=== PATIENT | male | born 1955 | race Caucasian/White ===

== ENCOUNTER 2021-07-15 21:18 | Observation (INO) | payer MEDICARE ==
[~2021-07-15] VITALS: Ht 182.9 cm; Wt 110.7 kg
[~2021-07-15 21:18] MED LIST: ALBU2.5V12 NEB; AZIT250T PO; BUDE1AMP2 IH; DOXY100C5 PO; IPRA3AMP25 IH; LEVO150T6 PO; PRED20TA PO
[2021-07-15 21:20] VITALS: BP 124/75
--- NOTE | 2021-07-15 21:20 | NUR ---
ARRIVAL ARRIVED VIA EMS. ALERT AND ORIENTED X3. C/O PAIN 4/10 ON NUMERICAL SCALE TO LEFT HIP. THURSDAY EVENING TRIPPED AND FELL INJURED LEFT HIP. THIS AFTERNOON WALKED TO TRUCK TO GET PHONE AND WAS FOUND IN THE DOORWAY BY EMS AFTER 5-6 HRS OF LYING THERE. HAD 10MG MORPHINE IV AND 4MG ZOFRAN IV IN ROUTE BY EMS. ON 2L O2 VIA NC O2 SAT @ 92%.
[2021-07-15] MEDS ORDERED: PROTONIX PO STA (21:31)
[2021-07-15] MEDS ORDERED: ZOFRAN IV STA (21:31)
[2021-07-15] MEDS ORDERED: ZOFRAN ONE (21:37)
[2021-07-15] MEDS ORDERED: PROTONIX PO ONE (21:37)
--- NOTE | 2021-07-15 21:51 | ER.PDOC ---
General Chief Complaint: Extremities Stated Complaint: L HIP DEFORMITY Time seen by MD: 21:46 Source: patient Exam Limitations: no limitations History of Present Illness Initial Comments Left hip pain status post fall. Patient tripped and fell, could not get up and laid on the floor for about 6 hours. He denies chest pain or shortness of breath. He denies hitting his head and no loss of consciousness. No headache or neck pain. Occurred: this afternoon Where: home Severity: severe Injuries/Pain Location: lower extremity Context: Tripped Loss of Consciousness: No Loss of Consciousness Associated Symptoms: denies symptoms Allergies: Coded Allergies: No Known Allergies (Unverified , 05/11/17) MEDS Active Scripts Doxycycline Hyclate (DOXYCYCLINE HYCLATE) 100 Mg Capsule, 100 MG PO BID for 7 Days, #14 TAB 0 Refills Prov:PRICE CASTILLO MD 10/29/20 Prednisone (PREDNISONE) 20 Mg Tablet, 40 MG PO DAILY24 for 7 Days, #7 TAB 0 Refills Prov:PRICE CASTILLO MD 10/29/20 Budesonide (Budesonide) 1 Mg/2 Ml Ampul.neb, 1 MG IH BID for 30 Days, #120 AMPULE 3 Refills Prov:PRICE CASTILLO MD 10/29/20 Ipratropium/Albuterol Sulfate (IPRAT-ALBUT 0.5-3(2.5) MG/3 ML) 3 Ml Ampul.neb, 3 ML IH QID for 30 Days, #120 AMPULE 3 Refills Prov:PRICE CASTILLO MD 10/29/20 Reported Medications Levothyroxine Sodium (LEVOTHYROXINE SODIUM) 150 Mcg Tablet, 1 TAB PO DAILY, #30 TAB 5 Refills 05/11/17 Past Medical History Medical History: COPD Surgical History: hip Family History Significant Family History: no pertinent family hx Social History Smoking: greater than 1 pack/day Alcohol Use: occassionally Drug Use: none Review of Systems Constitutional: no symptoms reported Respiratory: no symptoms reported Cardiovascular: no symptoms reported Gastrointestinal: no symptoms reported Genitourinary: no symptoms reported Musculoskeletal: see HPI All Other Systems: Reviewed and Negative Physical Exam General Appearance: No Apparent Distress, WD/WN Head: No Evidence of Injury Eyes: bilateral eye normal inspection Ears, Nose, Mouth, Throat: Hearing Grossly Normal, No Evidence of ENT Injury, No Dental Injury Neck: Non-Tender, Normal Alignment, Nexus criteria neg, Normal Inspection Cardiovascular/Respiratory: Regular Rate, Rhythm, No M/R/G, Normal Peripheral Pulses, No JVD, Normal Breath Sounds, No Respiratory Distress Gastrointestinal: Normal Bowel Sounds, No Organomegaly, No Pulsatile Mass, Non Tender, Soft Back: Normal Inspection, No CVA Tenderness, No Vertebral Tenderness Extremities: Pain With Movement (left hip) Neurologic/Psychiatric: shoulder boner II-XII NML as Tested, No Motor/Sensory Deficits, Alert, Normal Mood/Affect, Oriented x 3 Skin: Normal Color, Warm/Dry Bernard Coma Score Best Eye Response: (4) Open Spontaneously Best Verbal Response: (5) Oriented Best Motor Response: (6) Obeys Commands Joint Reduction Joint Reduction : Joint Reduction Site: hip (L) Conscious Sedation: Yes Pre-Procedure NV Exam: Yes Post-Procedure NV Exam: Yes Post Joint Reduction Film: joint not reduced Results/Orders Results/Orders Orders - GRACIELA GERARDO MD Cbc With Auto Diff (07/15/21 21:31) Creatine Kinase (07/15/21 21:31) PT (07/15/21 21:31) Partial Thromboplastin Time. (07/15/21 21:31) Xr Chest 1v (07/15/21 21:31) Ekg-Routine (07/15/21 21:31) Troponin I High Sensitivity (07/15/21 21:31) Basic Metabolic Panel (07/15/21 21:31) Xr Hip Lt 2v W/Pelvis (07/15/21 21:31) Ondansetron Hcl/Pf (Zofran) (07/15/21 21:31) Pantoprazole Sodium (Protonix) (07/15/21 21:31) Covid19 Antigen Fina Namita (07/15/21 21:34) Pantoprazole Sodium (Protonix) (07/15/21 21:37) Ondansetron Hcl/Pf (Zofran) (07/15/21 21:37) Sodium Chloride 0.45 % (Hns 1000ml) (07/15/21 23:25) Propofol (Diprivan) (07/15/21 23:27) Sodium Chloride 0.45 % (Hns 1000ml) (07/15/21 23:28) Metoclopramide Hcl (Reglan) (07/15/21 23:44) Hydromorphone Hcl (Dilaudid) (07/16/21 00:02) Xr Pelvis (07/16/21 00:22) Vital Signs Date Time Temp Pulse Resp B/P (MAP) Pulse Ox O2 Delivery O2 Flow Rate FiO2 07/15/21 21:20 98.2 97 22 07/15/21 21:20 98.2 97 22 92 07/15/21 21:20 98.2 97 22 124/75 (91) 92 Nasal Canula 2.00 Administered Medications Medications (Trade) Dose Ordered Sig/Bijal Route PRN Reason Start Time Stop Time Status Last Admin Dose Admin Ondansetron HCl (Zofran) 4 mg STAT STAT IV 07/15/21 21:31 07/15/21 21:35 DC 07/15/21 21:39 4 MG Pantoprazole Sodium (Protonix) 40 mg STAT STAT PO 07/15/21 21:31 07/15/21 21:35 DC 07/15/21 21:41 40 MG Laboratory Tests Test 07/15/21 21:35 07/15/21 21:46 White Blood Count 14.4 10^3/uL (4.5-11.0) H Red Blood Count 5.21 10^6/uL (4.50-5.90) Hemoglobin 17.4 g/dL (13.9-16.3) H Hematocrit 51.9 % (37.0-53.0) Mean Corpuscular Volume 99.6 fL (78-100) Mean Corpuscular Hemoglobin 33.4 pg (26-34) Mean Corpuscular Hemoglobin Concent 33.5 g/dL (33-36.5) Red Cell Distribution Width 13.7 % (11.5-14.5) Platelet Count 226 10^3/uL (150-400) Mean Platelet Volume 9.0 fL (7.8-11.0) Neutrophils (%) (Auto) 83.6 % (41.0-85.0) Lymphocytes (%) (Auto) 8.8 % (24.0-44.0) L Monocytes (%) (Auto) 6.7 % (5.0-12.0) Neutrophils # (Auto) 12.0 10^3/uL (1.8-7.7) H Lymphocytes # (Auto) 1.27 10^3/uL1 (1.0-4.8) Monocytes # (Auto) 1.0 10^3/uL (0.3-0.8) H Absolute Immature Granulocyte (auto 0.10 10^3 u/L (0-2) Absolute Eosinophils (auto) 0.0 10^3/uL (0.0-0.2) Immature Granulocytes % 0.70 % (0.00-0.50) H Eosinophils % 0.1 % (0.0-5.0) Basophils % 0.1 % (0.0-0.2) Basophils # 0.0 10^3/uL (0.0-0.1) Prothrombin Time 10.0 SEC (9.1-11.5) Prothrombin Time INR (Non-Therap) 1.0 Activated Partial Thromboplast Time 22.7 SEC (22.5-33.1) Sodium Level 137 mmol/L (132-145) Potassium Level 4.2 mmol/L (3.6-5.2) Chloride Level 103.0 mmol/L (96-109) Carbon Dioxide Level 24.6 mmol/L (20.0-32) Glucose Level 90 mg/dL (70-110) Blood Urea Nitrogen 15 mg/dL (7-18) Creatinine 1.17 mg/dL (0.59-1.40) Calcium Level 8.6 mg/dL (8.4-10.5) Anion Gap 13.6 Estimated GFR () 75.5 (>/=60) Est GFR (CKD-EPI)(Non-Afr Lebanese) 62.4 (>/=60) BUN/Creatinine Ratio 12.0 Total Creatine Kinase 1243 U/L (39-308) *H Troponin I High Sensitivity 19 ng/L (0-75) SARS-CoV-2 Antigen (Rapid) NEGATIVE (NEGATIVE) Progress Progress X rays Left hip: Dislocation of the left femoral head prosthesis. I attempted to reduce the left hip dislocation without success. I spoke with Dr. Triana's PA who told me to transfer patient to [facility] or [place] unfortunately, both hospitals have no beds. I called Dr. Odonnell who was gracious to accept that patient be admitted here under the hospitalist and he will take care of the patient in the morning. EKG/XRAY/CT/US EKG: NSR EKG Comments: HR 86, normal P axis ER DEPART Departure Time of Disposition: 01:06 Disposition: 09 ADMITTED INPATIENT Impression: Primary Impression: Hip dislocation, left Additional Impressions: Rhabdomyolysis Fall Condition: Stable Referrals: KWABENA SATNA (PCP) PRIMARY CARE PROVIDER Comments Admitted to Dr. Bueno Duration or Time Spent with Pa: 60 min Problem Qualifiers Primary Impression: Hip dislocation, left Encounter type: initial encounter Qualified Codes: S73.005A - Unspecified dislocation of left hip, initial encounter Additional Impressions: Rhabdomyolysis Rhabdomyolysis type: traumatic Encounter type: initial encounter Qualified Codes: T79.6XXA - Traumatic ischemia of muscle, initial encounter Fall Encounter type: initial encounter Qualified Codes: W19.XXXA - Unspecified fall, initial encounter GRACIELA GERARDO MD Jul 15, 2021 21:51
[2021-07-15 21:54] LABS: BASOPHIL % 0.1 % (0.0-0.2); EOSINOPHIL % 0.1 % (0.0-5.0); LYMPHOCYTES # 1.27 10^3/uL1 (1.0-4.8); LYMPHOCYTES % 8.8 % (24.0-44.0); MEAN CORP HGB 33.4 pg (26-34); MONOCYTES % 6.7 % (5.0-12.0); NEUTROPHILS % 83.6 % (41.0-85.0); PLATELET COUNT 226 10^3/uL (150-400); RED CELL DISTRIBUTION WIDTH 13.7 % (11.5-14.5)
--- NOTE | 2021-07-15 21:58 | PCM.EKG ---
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
[2021-07-15 22:28] LABS: CARBON DIOXIDE 24.6 mmol/L (20.0-32)
--- NOTE | 2021-07-15 22:45 | DIREP ---
PROCEDURE:XRAY HIP MIN 2VW-LT COMPARISON:[facility], CT, CT ABD/PELVIS W/ CONTRAST, 11/16/2019, 03:07 PM. INDICATIONS:pain s/p fall FINDINGS: BONES:Prior bilateral total hip replacements. No acute fractures visualized. JOINTS:Dislocation of the left femoral head prosthesis. SOFT TISSUES:Normal. OTHER:No additional findings. CONCLUSION:Dislocation of the left femoral head prosthesis. Dictated by: Denny La M.D. on 07/15/2021 at 10:41 PM
--- NOTE | 2021-07-15 22:47 | DIREP ---
PROCEDURE:CHEST 1 VIEW COMPARISON:[facility], CR, XRAY CHEST SINGLE VW, 10/27/2020, 08:21 PM. [facility], CT, CT ABD/PELVIS W/ CONTRAST, 11/16/2019, 03:07 PM. [facility], CT, CT CHEST W/CONTRAST, 05/12/2017, 11:29 AM. INDICATIONS:Syncope FINDINGS: LUNGS/PLEURA:No significant pulmonary parenchymal abnormalities. No effusions. VASCULATURE:Normal. Unremarkable pulmonary vasculature. CARDIAC:Normal. No cardiac silhouette abnormality or cardiomegaly. MEDIASTINUM:Normal. No visible mass or adenopathy. BONES:Normal. No fracture or visible bony lesion. OTHER:Negative. CONCLUSION:No acute chest abnormalities. Dictated by: Denny La M.D. on 07/15/2021 at 10:44 PM
--- NOTE | 2021-07-15 23:10 | NUR ---
DR. NIRMAL HERRING MBA ON PHONE WITH DR. KINNEY, ORTHOPEDIC SURGEON WHO DID BILATERAL HIP SURGERIES ON PT 5-6 YEARS AGO.
--- NOTE | 2021-07-15 23:23 | NUR ---
DR. ANDRÉS HERRING MBA ON PHONE WITH DR. BOWEN.
[2021-07-15] MEDS ORDERED: HNS 1000ML 1,000 ML IV STA (23:25)
[2021-07-15] MEDS ORDERED: DIPRIVAN IV ONE (23:27)
[2021-07-15] MEDS ORDERED: HNS 1000ML 1,000 ML ONE (23:28)
[2021-07-15] MEDS ORDERED: REGLAN IV STA (23:44)
[2021-07-16] VITALS (12 sets, daily range): BP systolic 114–165; BP diastolic 52–93
[2021-07-16] MEDS ORDERED: DILAUDID ONE (00:02)
--- NOTE | 2021-07-16 00:15 | NUR ---
ATTEMPTED HIP REDUCTION DR. OWENS ATTEMPTED HIP REDUCTION. UNSUCCESSFUL. SAMUEL HALL CRNA AND GHADA RT AT BEDSIDE. SEE ANETHESIA RECORD AND MODERATE SEDATION RECORD.
--- NOTE | 2021-07-16 01:14 | DIREP ---
PROCEDURE:XRAY PELVIS 1-2 VWS COMPARISON:[facility], CR, XRAY HIP MIN 2VW-LT, 07/15/2021, 09:53 PM. INDICATIONS:post reduction FINDINGS: BONES:Prior bilateral total hip replacements. No acute fractures visualized. JOINTS:Left femoral head prosthesis continues to be dislocated. SOFT TISSUES:Normal. OTHER:No additional findings. CONCLUSION:Continued dislocation of the left femoral head prosthesis. Dictated by: Denny La M.D. on 07/16/2021 at 01:11 AM
[2021-07-16] MEDS ORDERED: MORPHINE SULFATE IV PRN (01:30)
--- NOTE | 2021-07-16 01:35 | NUR ---
TRANSFERRED TO MED/SURG TRANSFERRED TO MED-SURG VIA STRETCHER BY GERTRUDE MUSA SUP. REPORT GIVEN TO DAVE NEWTON.
[2021-07-16] MEDS ORDERED: HNS 1000ML 1,000 ML IV SCH (03:30)
[2021-07-16] MEDS ORDERED: XYLOCAINE 2% 5ML VIAL ONE (07:45)
[2021-07-16] MEDS ORDERED: ZEMURON IV ONE (07:46)
[2021-07-16] MEDS ORDERED: SUBLIMAZE ONE (07:46)
[2021-07-16] MEDS ORDERED: DIPRIVAN IV ONE (07:46)
[2021-07-16] MEDS ORDERED: LACTATED RINGERS 1,000 ML ONE ×2 (07:47→09:27)
[2021-07-16] MEDS ORDERED: BRIDION IV ONE (07:48)
--- NOTE | 2021-07-16 08:00 | NUR ---
PT OFF UNIT AT THIS TIME FOR SURGICAL PROCEDURE IN OR.
[2021-07-16] MEDS ORDERED: TORADOL IV PRN (09:00)
[2021-07-16] MEDS ORDERED: LACTATED RINGERS 1,000 ML IV SCH (09:00)
[2021-07-16] MEDS ORDERED: CEPACOL SORE THROAT LOZENGE MM PRN (09:00)
[2021-07-16] MEDS ORDERED: ULTRAM PO PRN ×2 (09:00)
--- NOTE | 2021-07-16 09:45 | NUR ---
ARRIVAL PT ARRIVED VIA BED. SEE SPECIAL VS RECORD
--- NOTE | 2021-07-16 09:46 | NUR ---
PT ARRIVED TO FLOOR AT 0940. KS
--- NOTE | 2021-07-16 11:03 | OPH ---
DATE OF SURGERY: 07/16/2021 DICTATOR NAME: David Odonnell MD PREOPERATIVE DIAGNOSIS: Closed dislocation of the left hip prosthesis. POSTOPERATIVE DIAGNOSIS: Closed dislocation of the left hip prosthesis. OPERATIVE PROCEDURE: Closed reduction under anesthesia, left hip prosthesis. SURGEON: David Odonnell MD. ANESTHESIA: General endotracheal. BLOOD LOSS: None. DESCRIPTION OF INDICATIONS: The patient is a 66-year-old male who had left total hip arthroplasty approximately 6 years ago. The patient states that he has had multiple episodes of subluxation/dislocation of the hip through the years. He states that if he squats down, he feels like the hip dislocates and then when he stands back up, it easily reduces. The patient states that sometimes he can just cough and feels like the hip comes out of the joint. Apparently 48 hours ago, the patient felt the hip come out of place and he fell to the floor. The patient did not come to the Emergency Room until late last night. X-ray showed a posterior and superior dislocation of the left hip prosthesis. He was taken to the operating room today for closed reduction. DESCRIPTION OF PROCEDURE: The patient was placed on the operating table in the supine position. General endotracheal anesthetic was induced without difficulty. Once the patient was completely paralyzed, the hip was reduced with traction and manipulation. C-arm views, AP and lateral showed that the head was well centered in the acetabulum. The patient was placed in an abduction pillow. He was extubated in the operating room and sent to recovery in stable condition. David Odonnell MD DR: NAILA HEIN: [phone] RECEIPT: [id number]
[2021-07-16] MEDS ORDERED: VENTOLIN IH ONE (11:45)
--- NOTE | 2021-07-16 11:50 | NUR ---
DISCHARGE PLAN CM AND SS AT BEDSIDE TO VISIT WITH PATIENT REGARDING D/C PLANNING PHYSICAL THERAPY IN ROOM. CM WILL FOLLOW UP WHEN THERAPY FINISHED. RAMO PATIENTS SON CONCERNED ABOUT PATIENTS LIVING CONDITIONS AT HOME. PER SON NO RUNNING WATER IN THE HOME, TRASH COVERING THE FLOORS, CM AND SW OBSERVED PICTURES OF THE INSIDE OF THE HOME, TRASH EVERYWHERE AND APPEARED THAT PATIENT IS HOARDING, NO SAFE WALKWAYS. SON CONCERNED PATIENT IS SUFFERING FROM DEPRESSION. CM AND SW EDUCATED SON ON DISCHARGE OPTIONS. CM EDUCTED ON PENITENTIARY FACILITIES AND SW EDUCATED ON INCOME BASED HOUSE WITH HANDICAP ACCESSIBILITY AND SCREENING PATIENT FOR BEHAVIORAL HEALTH SERVICES. CM AND SW TO FOLLOW UP WITH PATIENT AND DISCUSS OPTIONS.
[2021-07-16] MEDS: VENTOLIN IH PRN ×2 (11:56→16:52)
--- NOTE | 2021-07-16 12:15 | NUR ---
D/C UPDATE: CM AND SS VISITED WITH PT REGARDING DISCHARGE PLANNING. PT REPORTS HE HAS 3 CHILDREN AISLINN, GERTRUDIS, AND RAMO. RAMO LIVES IN [place] BUT WORKS IN [place] AND CHECKS ON HIM AND BRINGS HIM FOOD. PT REPORTS HE HAS BEEN WEAKER AND IT HAS BEEN DIFFICULT TO TAKE CARE OF HIMSELF. CM EDUCATED PT REGARDING SNF AND HH SERVICES. PT WAS VERY ADAMANT THAT HE WOULD NOT GO INTO A NURSING FACILITY AND THAT WOULD NOT EVEN BE AN OPTION. PT STATED HE WOULD GO HOME WITH HIS SON RAMO UNTIL HE IS STRONG ENOUGH TO GO HOME. PT WAS OPEN TO HH AND DID NOT HAVE A PREFERENCE AND WAS FINE WITH WHATEVER HH WAS IN NETWORK WITH HIS INSURANCE. PT REPORTED HE WAS HAVING FINANCIAL DIFFICULTIES AND UNABLE TO AFFORD HIS MEDICATION OR HOME O2. PT DID STATED HE HAD A TRILOGY UNIT IN PLACE AND HIS PCP WAS Wilbur SANTA NP. PT STATED HE DID NOT HAVE ANY DME IN PLACE AT THIS TIME. PT REPORTS HE HAS BEEN "DEPRESSED" AND HAD BEEN AFFECTING HIM. PT REPORTS HE HAS NOT WANTED TO DO ANYTHING AND HAS SEEN A MEDICAL DECLINE WELL. PT REPORTS WANTING HELP FOR DEPRESSION. SS EDUCATED PT ON BEHAVIORAL HEALTH SERVICES AND PT STATED "THAT SOUNDS GOOD LETS DO IT". SW NOTIFIED Forest MOORE NP OF [facility] AND SHE WAS FINE WITH PT COMING TO [facility] FOR FURTHER BEHAVIORAL MANAGEMENT. SS ALSO NOTIFIED DR. CASTILLO OF [facility] AND HE STATED HE WAS FINE WITH PT COMING TO BEHAVIORAL AND IT WOULD WORK BETTER FOR HIM TO MAKE SURE HE IS GOOD BOTH MENTALLY AND MEDICALLY. PT'S DISCHARGE PLAN AT THIS TIME IS TO GO TO [facility] FOR STATED DEPRESSION AND THEN DISCHARGE HOME WITH HIS SON JLUIS AND [facility]AVING [facility] COM[facility]. CM TOOK PT AND SON A MEDICAL POA FORM SO PT COULD HAVE THAT IN PLACE. CM DID LET PT AND SON KNOW THERE WAS A NOTARY ON STAFF IF THEY WANTED TO HAVE IT NOTARIZED HERE THEY COULD ASK THE NURSES AND THEY WOULD HAVE A NOTARY COME UP AND ASSIST PT AND SON. NO FURTHER CM/SS NEEDS NOTED AT THIS TIME.
[2021-07-16] MEDS: TYLENOL PO SCH ×2 (12:21→17:59)
--- NOTE | 2021-07-16 12:36 | PCM.HP ---
History of Present Illness Reason for Visit: (1) Hip dislocation, left ICD Code: S73.005A - Unspecified dislocation of left hip, initial encounter SNOMED: 903119043 Hx of Present Illness Mr. Ervin is a pleasant 66-year-old gentleman who fell last night and felt immediate pain focal to both hips, with inability to move his left leg indicating a likely dislocation. He presented here, but the injury could not be reduced in the ER, thus the patient awaited reduction under anesthesia this morning. This was successfully completed, and at the time of my interview, the patient reports that he feels well, and that "my right hip hurts more than my left does". Travel History EBOLA RISK:Travel to/contact w: No Review of Systems Respiratory: Cough, Dry, SOB with excertion Other Complete review of systems is negative except as per HPI Allergies: Coded Allergies: No Known Allergies (Unverified , 05/11/17) Scheduled Budesonide (Budesonide), 1 MG IH BID Ipratropium/Albuterol Sulfate (Iprat-Albut 0.5-3(2.5) Mg/3 Ml), 3 ML IH QID Levothyroxine Sodium (Levothyroxine Sodium), 1 TAB PO DAILY, (Reported) Discontinued Medications Doxycycline Hyclate (Doxycycline Hyclate), 100 MG PO BID Discontinued Reason: No Longer Taking VTE VTE Risk Total Score: >5 VTE Risk Score VTE Risk: Score 0-1 = Low Risk (Aggressive mobilization; early ambulation; no VTE prophylaxis required) Score 2: Moderate Risk (Intermittent/Pneumatic Compression Device OR Lovenox/Heparin/Coumadin) Score 3-4: High Risk (Intermittent/Pneumatic Compression Device AND Lovenox/Heparin/Coumadin) Score > or =5: Highest Risk (Intermittent/Pneumatic Compression Device AND Lovenox/Heparin/Coumadin) Antico:Hep/LMWH/Coum/Xarelto: Yes Mechanical device ordered: Yes VTE VTE Present on Admission: No Currently receiving anticoagul: No VTE Risk Total Score: >5 Antico:Hep/LMWH/Coum/Xarelto: Yes Mechanical device ordered: Yes Exam Vital Signs Vital Signs Date Time Temp Pulse Resp B/P (MAP) Pulse Ox O2 Delivery O2 Flow Rate FiO2 07/16/21 11:53 16 95 07/16/21 11:40 72 Nasal Cannula 3.00 32 07/16/21 09:25 156/74 (101) 07/16/21 08:55 99.0 General Appearance: Oriented X3, Cooperative HEENT: Atraumatic, PERRLA, EOMI Respiratory: Clear to auscultation, Normal air movement Cardiovascular: Regular rate, Normal S1 Abdominal: Normal bowel sounds, Soft Extremities: No clubbing, No cyanosis Skin: No rash, No breakdown Neuro: Normal gait, Normal speech Psych/Mental Status: Mental status NL Assessment/Plan Assessment/Plan Problems: (1) Hip dislocation, left Status: Acute Assessment & Plan: Status post reduction in the OR,Once the patient clears PT will likely discharge, possibly today versus in the morning; will continue with prophylactic anticoagulation of Lovenox for 3 weeks ICD Code: S73.005A - Unspecified dislocation of left hip, initial encounter SNOMED: 708075727 (2) Tobacco abuse Status: Chronic Assessment & Plan: Chronic, nicotine patch on counseled patient to stop smoking which he is unlikely to ICD Code: Z72.0 - Tobacco use SNOMED: 683046372 (3) COPD (chronic obstructive pulmonary disease) Status: Chronic Assessment & Plan: Duo nebs scheduled here, will prescribe nebulizer as well as twice daily budesonide and 4 times daily duo nebs for patient compliance comfort and cost.No sign of acute exacerbation ICD Code: J44.9 - Chronic obstructive pulmonary disease, unspecified SNOMED: 38094619 Problem Qualifiers (1) Hip dislocation, left: Encounter type: initial encounter Qualified Codes: S73.005A - Unspecified dislocation of left hip, initial encounter PRICE CASTILLO MD Jul 16, 2021 12:36
[2021-07-16] MEDS ORDERED: LOVENOX SQ SCH (13:00)
[2021-07-16] MEDS ORDERED: NICOTINE 21MG PATCH TD SCH (14:30)
--- NOTE | 2021-07-16 15:36 | PRM.DC ---
Discharge Summary Date of Discharge: Jul 16, 2021 Time of Request to Discharge: 16:00 Reason for Visit: Fall Hospital Course Mr. Ervin is a pleasant 65yoM who presented with a left hip dislocation after a fall. When the dislocation could not be reduced in the ED, he was kept overnig ht for EUA and closed reduction,which was completed today. He is doing well postop, but concerns for his depression s/p divorce as well as his living situation led to admission to the [facility] prior to discharge home. As a result, he is discharged to U this afternoon with 21 days of prophylactic lovenox and PT to continue there. General: Alert, Oriented X3, Cooperative HEENT: Atraumatic, PERRLA, EOMI Neck: Supple, No JVD, No thyromegaly Lungs: Clear to auscultation Heart: Regular rate, Normal S1 Abdomen: Normal bowel sounds, Soft Extremities: No clubbing, No cyanosis Skin: No rashes, No breakdown Neuro: Normal gait, Normal speech, Strength at 5/5 X4 ext Psych/Mental Status: Mental status NL, Mood NL Scheduled Budesonide (Budesonide), 1 MG IH BID Ipratropium/Albuterol Sulfate (Iprat-Albut 0.5-3(2.5) Mg/3 Ml), 3 ML IH QID Levothyroxine Sodium (Levothyroxine Sodium), 1 TAB PO DAILY, (Reported) Discontinued Medications Doxycycline Hyclate (Doxycycline Hyclate), 100 MG PO BID Discontinued Reason: No Longer Taking Sepsis Evaluation @ Discharge 07/16/21 02:33 Course Sepsis Screening Results: Posi: POSITIVE Sepsis Qualifier/Stage: SEPSIS RISK Duration or Total Time Spent w: 60 min Vitals & review Data Vital Sign - Last 24 Hours 07/15/21 07/15/21 07/15/21 07/16/21 21:20 21:20 21:20 01:24 Temp 98.2 98.2 98.2 98.2 Pulse 97 97 97 87 Resp B/P (MAP) 124/75 (91) 117/52 (73) Pulse Ox 92 92 93 O2 Delivery Nasal Canula Nasal Canula O2 Flow Rate 2.00 3.00 07/16/21 07/16/21 07/16/21 07/16/21 02:31 02:36 08:25 08:55 Temp 97.8 98.9 99.0 Pulse 74 77 Resp 20 16 B/P (MAP) 135/76 (95) 161/75 (103) Pulse Ox 95 88 O2 Delivery Nasal Cannula Nasal Canula Room Air O2 Flow Rate 3.00 3.00 07/16/21 07/16/21 07/16/21 07/16/21 09:00 09:05 09:10 09:15 Pulse 76 70 71 70 Resp 16 16 16 16 B/P (MAP) 164/87 (112) 165/93 (117) 153/80 (104) 150/80 (103) Pulse Ox 93 93 93 95 O2 Delivery Nasal Canula Nasal Canula Nasal Canula Nasal Canula O2 Flow Rate 2.00 2.00 2.00 2.00 07/16/21 07/16/21 07/16/21 07/16/21 09:20 09:25 09:30 09:45 Temp 97.8 Pulse 72 69 89 Resp 16 16 18 B/P (MAP) 152/76 (101) 156/74 (101) 114/68 (83) Pulse Ox 96 94 93 O2 Delivery Nasal Canula Nasal Canula Nasal Canula O2 Flow Rate 2.00 2.00 2.00 2.00 07/16/21 07/16/21 07/16/21 07/16/21 11:40 11:40 11:40 11:53 Pulse 69 69 72 Resp 16 16 18 16 Pulse Ox 94 94 93 95 O2 Delivery Nasal Cannula O2 Flow Rate 3.00 FiO2 32 Intake and Output 07/16/21 07:00 Intake Total 1000 ml Output Total 100 ml Balance 900 ml Laboratory Tests Test 07/15/21 21:35 07/15/21 21:46 White Blood Count 14.4 10^3/uL Red Blood Count 5.21 10^6/uL Hemoglobin 17.4 g/dL Hematocrit 51.9 % Mean Corpuscular Volume 99.6 fL Mean Corpuscular Hemoglobin 33.4 pg Mean Corpuscular Hemoglobin Concent 33.5 g/dL Red Cell Distribution Width 13.7 % Platelet Count 226 10^3/uL Mean Platelet Volume 9.0 fL Neutrophils (%) (Auto) 83.6 % Lymphocytes (%) (Auto) 8.8 % Monocytes (%) (Auto) 6.7 % Neutrophils # (Auto) 12.0 10^3/uL Lymphocytes # (Auto) 1.27 10^3/uL1 Monocytes # (Auto) 1.0 10^3/uL Absolute Immature Granulocyte (auto 0.10 10^3 u/L Absolute Eosinophils (auto) 0.0 10^3/uL Immature Granulocytes % 0.70 % Eosinophils % 0.1 % Basophils % 0.1 % Basophils # 0.0 10^3/uL Prothrombin Time 10.0 SEC Prothrombin Time INR (Non-Therap) 1.0 Activated Partial Thromboplast Time 22.7 SEC Sodium Level 137 mmol/L Potassium Level 4.2 mmol/L Chloride Level 103.0 mmol/L Carbon Dioxide Level 24.6 mmol/L Glucose Level 90 mg/dL Blood Urea Nitrogen 15 mg/dL Creatinine 1.17 mg/dL Calcium Level 8.6 mg/dL Anion Gap 13.6 Estimated GFR () 75.5 Est GFR (CKD-EPI)(Non-Afr Brazilian) 62.4 BUN/Creatinine Ratio 12.0 Total Creatine Kinase 1243 U/L Troponin I High Sensitivity 19 ng/L SARS-CoV-2 Antigen (Rapid) NEGATIVE Current Medications Medications (Trade) Dose Ordered Sig/Bijal PRN Reason Start Time Stop Time Status Last Admin Acetaminophen (Tylenol) 1,000 mg Q6HR 07/16/21 12:00 08/15/21 11:59 07/16/21 12:21 Albuterol Sulfate (Ventolin) 2.5 mg RTQ4 PRN SHORTNESS OF BREATH 07/16/21 12:00 08/15/21 11:59 07/16/21 11:56 Enoxaparin Sodium (Lovenox) 30 mg Q12H 07/16/21 13:00 08/15/21 12:59 07/16/21 15:16 Ketorolac Tromethamine (Toradol) 15 mg Q6H PRN PAIN 4 - 6 07/16/21 09:00 07/21/21 08:59 Morphine Sulfate (Morphine Sulfate) 4 mg Q4 PRN PAIN 4 - 6 07/16/21 01:30 08/15/21 01:29 Nicotine (Nicotine 21mg Patch) 1 each DAILY 07/16/21 14:30 08/15/21 14:29 07/16/21 15:16 Sodium Chloride 1,000 ml @ 125 mls/hr Q8H 07/16/21 03:30 08/15/21 03:29 07/16/21 03:05 Throat Lozenges (Cepacol Sore Throat Lozenge) 1 each PRN PRN SORE THROAT 07/16/21 09:00 08/15/21 08:59 Tramadol HCl (Ultram) 50 mg Q6H PRN PAIN 4 - 6 07/16/21 09:00 08/15/21 08:59 Tramadol HCl (Ultram) 100 mg Q6H PRN PAIN 7 - 10 07/16/21 09:00 08/15/21 08:59 LEVEL 1 SEPSIS INFECTION CRITE: Cough/Shortness of Breath LEVEL 2-SIRS (LIST ALL THAT AP: WBC>[id number] Cardiovascular Evidence: Not Assessed or None Hematologic Evidence: None/Not assessed Hepatic Evidence: None/Not assessed Metabolic Evidence: None/Not assessed Neurological Evidence: None/Not assessed Respiratory Evidence: Need for O2 to keep>90%, O2 SAT<90room air Renal Evidence: None/Not assessed O2 Sat by Pulse Oximetry: 95 Oxygen Flow Rate: 3.00 PRICE CASTILLO MD Jul 16, 2021 15:36
--- NOTE | 2021-07-16 16:00 | NUR ---
IV IV DCD. TIP INTACT.
--- NOTE | 2021-07-16 16:40 | NUR ---
PT ASKED FOR BREATHING TREATMENT FOR WHEEZING, UPON RT ARRIVAL TO ROOM PT SITTING ON SIDE OF BED, STATED "HE JUST SET UP", PT SPO2 ON RA WAS 80%, WHEN PT SAT FOR A BIT IT WENT UP TO 97%, PT GIVEN BREATHING TREATMENT AND SPO2 WENT UP TO 97%, LEFT ON RA AND INFORMED RN THAT THEY NEED TO CHECK PT, HIS SAT IS IN THE 90'S WHEN NOT MOVING BUT DROPS, RN STATED SHE WOULD GO CHECK ON THE PT
--- NOTE | 2021-07-16 18:38 | NUR ---
REPORT REPORT TO ONCOMING SHIFT
[2021-07-16] MEDS ORDERED: FLUT1BLS3 HHN (22:28)
[2021-07-17] MEDS ORDERED: ALBU90AE IH (00:01)
--- NOTE | 2021-07-17 01:23 | CNH ---
DATE OF CONSULTATION: 07/16/2021 DICTATOR NAME: David Odonnell MD CHIEF COMPLAINT: Painful left hip. HISTORY OF PRESENT ILLNESS: The patient is a 66-year-old male who had a left total hip arthroplasty performed approximately 6 years ago. The patient states that he has had problems with the hip coming out of place multiple times over the last 6 years. The patient states that at times, he can squat down and he feels like the hip comes out of place, but when he stands back up, the hip reduces. He states that there are times when he can cough and he feels like the hip is out of position. He has never had to go to the Emergency Room to have it reduced and therefore does not have any x-rays of the hip actually being dislocated. The patient states that approximately 48 hours ago, he coughed and felt pain about the left hip and fell to the floor. He was unable to get off the floor and could not get to his cell phone. He was taken to the Emergency Room last night around midnight where x-rays revealed a dislocated hip prosthesis. He was taken to the operating room today for closed reduction under anesthesia. The patient's x-ray showed that the hip was dislocated posteriorly and superiorly. The patient has a posterior incision about the hip and the hip in the position of flexion and adduction. He has normal sensation throughout the left lower extremity and normal flexion and extension of his foot and ankle. ASSESSMENT: Closed left hip prosthesis dislocation. PLAN: The patient will be taken to the operating room today for closed reduction under anesthesia. The risks and hazards of the procedure have been discussed with the patient. The patient is in agreement. David Odonnell MD DR: DEBORAH/MICKI TID: [id number] RECEIPT: [id number]
== END 2021-07-16 19:30 ==
LOC: ER 21:18 → MS 07-16 01:15
PROVIDERS: ADMIT Surgery; ATTEND Family Medicine
DX: T84.021A Dislocation of internal left hip prosthesis, initial encounter (principal); Z20.822 Contact with and (suspected) exposure to COVID-19; J44.9 Chronic obstructive pulmonary disease, unspecified; M62.82 Rhabdomyolysis; F32.A Depression, unspecified; F17.200 Nicotine dependence, unspecified, uncomplicated; W01.0XXA Fall on same level from slipping, tripping and stumbling without subsequent striking against object, initial encounter; Y93.89 Activity, other specified; Y92.89 Other specified places as the place of occurrence of the external cause; Y79.2 Prosthetic and other implants, materials and accessory orthopedic devices associated with adverse incidents
CPT/HCPCS: 27266; 36415; 71045; 72170; 73502; 76000; 80048; 82550; 84484; 85025; 85610; 85730; 87426; 93005; 94640; 96372; 96374; 97161; 97530; 99285; G0378 ×2; J1170; J1650; J2001; J2405; J3010; J3490 ×3; J7030 ×2; J7120; J7613

== ENCOUNTER 2021-07-16 19:30 | Inpatient (IN) | payer MEDICARE ==
[~2021-07-16] VITALS: Ht 180.3 cm; Wt 110.7 kg
--- NOTE | 2021-07-16 19:30 | NUR ---
PATIENT ARRIVED TO UNIT VIA WHEELCHAIR ACCOMPANIED BY THIS NURSE AND REVENUE COORDINATOR AND SON RAMO ACCOMPANIED ALSO. NO DISTRESS. ORIENTED PATIENT AND SON TO UNIT AND PLANS. UNDERSTANDING VOICED.
[2021-07-16] MEDS ORDERED: ULTRAM PO PRN (21:50)
[2021-07-16 22:04] VITALS: BP 134/83
[2021-07-16] MEDS ORDERED: FLUT1BLS3 HHN (22:28)
[2021-07-16] MEDS ORDERED: VENTOLIN HFA IH ONE (22:49)
[2021-07-16] MEDS: NORCO 5MG PO PRN (23:06)
[2021-07-17] MEDS ORDERED: ALBU90AE IH (00:01)
--- NOTE | 2021-07-17 02:44 | NUR ---
ADMIT MALE PATIENT ADMITTED TO [facility] FOR DX MDD. VOLUNTARY STATUS. PATIENT HAD CLOSED REDUCTION OF DISLOCATED LEFT HIP 07/16/21 THEN WAS ON MED SURGE UNTIL ADMIT TO U. PATIENT VOICED HE WAS DEPRESSED, NEEDED A LITTLE HELP GETTING OVER THE HUMP WITH HIS DEPRESSION. SOMETHING TO HELP HIM ENJOY THINGS AGAIN. PATIENT LIVES AT HOME ALONE IN RUN DOWN/FALLING DOWN HOME THAT HAS NOT HAD RUNNING WATER FOR 5 YEARS. PER SON IT IS NOT LIVABLE AND PATIENT DOES NOT CARE. PATIENT HAS HX OF LEFT HIP SURGERY AND THIS HIP DISLOCATING EASILY, EVEN WITH SNEEZING OR COUGHING. PATIENTS HIP DISLOCATED AND HE FELL 07/13/21 AND HE WAS UNABLE TO GET UP AND NOT FOUND UNTIL 07/15/21. IN WHICH HE WAS INCONTINENT OF BOWEL AND STOOL. PAST MEDICAL HISTORY OF THYROID ISSUES, COPD. IS ON TRELEGY AND PATIENTS SON WILL BRING HIS OWN MED TO [facility] 07/17/21. PAST PSYCH HX, DEPRESSION. DENIES ANXIETY. PATIENT VOICES HE DOES NOT WANT ANY MEDS THAT IS GOING TO MAKE HIM NOT FEEL LIKE HIMSELF. PATIENT DOES HAVE ON A BRACE TO KEEP LEFT HIP SUPPORTED THAT IS NOT TO BE REMOVED EXCEPT FOR SHOWERS PER SON/REPORT. PATIENT HAS ABRAISED TYPE AREAS TO COCCYX/BUTTOCKS AREA. EXCORIATION TO RAJENDRA AREA ALSO. MOISTURE BARRIER CREAM APPLIED TO ALL SKIN IRRITATIONS. PATIENT VOICES HE FEELS THIS IS FROM WHEN HE FELL AT HOME AND WAS INCONTINENT AND IN MOIST UNDERGARMENTS FOR ALMOST 2 DAYS. DISCHARGE PLAN OS FOR PATIENT TO GO LIVE WITH SON AWHILE ON DISCHARGE.
[2021-07-17] MEDS: VENTOLIN HFA IH PRN ×4 (05:30→20:48)
[2021-07-17 08:02] VITALS: BP 129/84
[2021-07-17] MEDS ORDERED: VENTOLIN HFA IH PRN (08:30)
--- NOTE | 2021-07-17 09:31 | PRM.CONS ---
Consultation Reason for Consult: Reason for Consultation: Medical management History of Present Illness History of Patient Comments Mr. Ervin is a 66-year-old gentleman who presented from home after falling and suffering a left hip dislocation. The patient remained in the hospital for exam under anesthesia andReduction the following day which she tolerated well. The patient's son reported that he had ongoing issues with depression following his divorce and as a consequence the patient is admitted to the behavioral health unit for management prior to eventual discharge home. Review of Systems Respiratory: Cough, Dry, SOB with excertion Other Complete review of systems is negative except as per HPI Physical exam: GEN: NAD, AOx4 HEENT: EOMI, PERRL PULM: CTAB CARDIAC: RRR, no M/R/G ABD: soft, NTND : no suprapubic TTP NEURO: strength 08/08 PSYCH: euthymic affect, fluent speech Allergies: Coded Allergies: No Known Allergies (Unverified , 05/11/17) Scheduled Fluticasone/Umeclidin/Vilanter (Trelegy Ellipta 100-62.5-25), 1 PUFF HHN DAILY24, (Reported) Levothyroxine Sodium (Levothyroxine Sodium), 1 TAB PO DAILY, (Reported) Scheduled PRN Albuterol Sulfate (Proair Respiclick), 90 MCG IH Q4 PRN for SHORTNESS OF BREATH, (Reported) Discontinued Medications Budesonide (Budesonide), 1 MG IH BID Discontinued Reason: Discontinue Doxycycline Hyclate (Doxycycline Hyclate), 100 MG PO BID Discontinued Reason: No Longer Taking Ipratropium/Albuterol Sulfate (Iprat-Albut 0.5-3(2.5) Mg/3 Ml), 3 ML IH QID Discontinued Reason: Discontinue VTE VTE Risk Total Score: 3 VTE Risk Score VTE Risk: Score 0-1 = Low Risk (Aggressive mobilization; early ambulation; no VTE prophylaxis required) Score 2: Moderate Risk (Intermittent/Pneumatic Compression Device OR Lovenox/Heparin/Coumadin) Score 3-4: High Risk (Intermittent/Pneumatic Compression Device AND Lovenox/Heparin/Coumadin) Score > or =5: Highest Risk (Intermittent/Pneumatic Compression Device AND Lovenox/Heparin/Coumadin) Antico:Hep/LMWH/Coum/Xarelto: Yes Mechanical device ordered: Yes Assessment/Plan Assessment/Plan Problems: (1) Dislocation of hip Status: Resolved Assessment & Plan: Status post close reduction, pending 3 weeks of Lovenox prophylaxis ICD Code: S73.006A - Unspecified dislocation of unspecified hip, initial encounter SNOMED: 378772348 (2) COPD (chronic obstructive pulmonary disease) Status: Chronic Assessment & Plan: Transition patient over to schedule budesonide and duo nebs, will provide prescription for these medications as well as nebulizer upon discharge ICD Code: J44.9 - Chronic obstructive pulmonary disease, unspecified SNOMED: 71741987 (3) Tobacco abuse Status: Chronic Assessment & Plan: Strongly counseled patient against ongoing tobacco use given his underlying COPD ICD Code: Z72.0 - Tobacco use SNOMED: [id number] PRICE CASTILLO MD Jul 17, 2021 09:31
[2021-07-17] MEDS: SYNTHROID PO SCH (10:51)
--- NOTE | 2021-07-17 11:25 | PRM.PSY ---
Assessment/Plan Assessment/Plan Assessment/Plan Date of Service: 07/17/21 Patient Name: Corbin Ervin Date of : 1955 Age:66 Y Sex:male Race: Marital Status: single Employment Status: disabled Location of Care: Patient Seen Via Telehealth Patient seen with Tawana Dean, Nurse Practitioner Note created by TRAIL MAINTENANCE WORKER and edited by me. Presenting Complaints: depression History of Presenting Complaints: This is a 66 Y male with no past psychiatric conditions. He was admitted into the hospital after he fell and fx his hip. He was found to have poor living con ditions and suffered depression due to this. During my evaluation of this pateint he is calm, cooperative and polite. He denies any past psychiatric conditions, any past psych medications. He also denies SI/HI, and denies never having any past attempt now ever though of suicide. He denies hallucinations of any kind. He denies any illicit drug use, and states he uses alcohol occasio howie. He denies nicotine use. The patient says he's depressed due to his living conditions and his limited financial resources. He rates his depression at a 4/10. He denies any anxiety. He says he sleeps well and his appetite is well. Assessment of Imminent Risk Presence of Homicidal thoughts: Denies Presence of Self-harm/Suicidal thoughts: Denies Presence of Hallucinations: Denies Presence of Delusions: Denies Recent Stressors Recent stressors include: Financial concern Other Stressors: living conditions Past Psychiatric History: Diagnoses: Denies Suicide attempts: Denies Psychiatric hospitalizations: Denies Psychiatric outpatient: Denies Psychotherapy/Counseling: Denies Substance Abuse: Denies Past psychiatric medications tried and response: Denies Family History Unknown Social History Tobacco: Never smoker Alcohol: Denies Usage Drug: Denies Usage Marital Status: Living Arrangements: alone Employment Status: disabled History of Abuse: No Access to guns/weapons: No Legal History: No Current Medications Patient currently takes no medication Allergies Allergy: NKDA Physical Exam General Development: Well-developed, Well-nourished, In no distress Neck Surface: Normal Respiratory Breathing: Breathing unlabored Neurological Orientation: X 3 Mental Status Exam: General Appearance and Behavior: age appropriate, good eye contact, cooperative with questioning and polite Cooperation: Cooperative Psychomotor Behavior: normal Mood: Depressed Affect and affective range: Congruent with stated mood Thought Process: Fluent/Logical and Goal-directed Thought Content: Within reality Speech: Normal volume and Regular rate and rhythm Intellectual Functioning: Average Suicidal Ideation: Denies SI Homicidal Ideation: Denies HI Impulse Control: intact Insight and Judgment: normal insight and judgment Memory: Normal Attention: Normal Orientation: alert and oriented Capacity to consent: Intact Strengths: family support from his sons and daughters, his puppy Weaknesses: Limited resources, living conditions Diagnoses Major depressive disorder Treatment Plan: Medication Management and Therapy Medication Management: Celexa 10mg po daily Reviewed expected course of therapy, potential medication side effects and need for close follow up. Counseled patient about risk of discontinuing medications without medical advice and need for gradual taper when stopping medications. Risks, benefits, alternatives and possible side effects discussed with patient. Consent obtained. ELOS 7 days Prognosis Good Current Medications Medications (Trade) Dose Ordered Sig/Bijal PRN Reason Start Time Stop Time Status Last Admin Acetaminophen/ Hydrocodone Bitart ([place] 5mg) 1 ea Q6HR PRN PAIN 07/16/21 21:50 08/15/21 00:00 07/16/21 23:06 Albuterol Sulfate (Ventolin Hfa) 2 inh Q4 PRN SHORTNESS OF BREATH 07/17/21 00:00 08/15/21 00:00 07/17/21 05:30 Enoxaparin Sodium (Lovenox) 30 mg Q12H 07/17/21 09:30 08/16/21 09:29 Levothyroxine Sodium (Synthroid) 150 mcg ACB 07/17/21 08:00 08/16/21 07:59 07/17/21 10:51 Tramadol HCl (Ultram) 50 mg Q4HR PRN PAIN 07/16/21 21:50 08/15/21 00:00 07/17/21 10:50 Problems: (1) MDD (major depressive disorder), recurrent episode, severe ICD Code: F33.2 - Major depressive disorder, recurrent severe without psychotic features SNOMED: [id number], [id number] AILYN GARZA MD Jul 17, 2021 11:25
[2021-07-17] MEDS: LOVENOX SQ SCH ×2 (13:29→21:53)
[2021-07-17] MEDS ORDERED: NICOTINE 21MG PATCH TD ONE ×2 (14:00→14:38)
[2021-07-17] MEDS: NICOTINE 21MG PATCH TD SCH (14:38)
--- NOTE | 2021-07-17 16:20 | NUR ---
GMAS: PLEASE SEE PT'S CHART FOR FULL ASSESSMENT. Addendum: 07/18/21 at 2150 by Sharda Contreras LMSW SW Amended: Links added.
[2021-07-17 19:25] VITALS: BP 140/61
--- NOTE | 2021-07-17 20:30 | NUR ---
SLEEP PATIENT REQUESTING MED FOR SLEEP TONIGHT. CONTACTED AISLINN RICO, REPORTED SAME, NEW ORDER RECEIVED FOR TRAZODONE 50 MG EVERY HS. EDUCATED PATIENT ON SAME, UNDERSTANDING VOICED.
[2021-07-17] MEDS ORDERED: DESYREL PO SCH (21:00)
[2021-07-17] MEDS: NORCO 5MG PO PRN (21:55)
[2021-07-18] MEDS: SYNTHROID PO SCH (05:42)
[2021-07-18] MEDS: VENTOLIN HFA IH PRN ×3 (05:43→15:46)
[2021-07-18] MEDS: NORCO 5MG PO PRN (05:43)
--- NOTE | 2021-07-18 06:38 | NUR ---
P.I.R.P. P. ALTERATION IN MOOD I. PROVIDE EVERY 15 MINUTE CHECKS, PROVIDE SAFE AND SECURE ENVIRONMENT, PROVIDE 1:1 INTERVENTION TO ALLOW PATIENT TO EXPRESS FEELINGS, PROVIDE MEDICATIONS ORDERED PER MD. PROVIDE TASK ORIENTED GROUP ACTIVITY AND ENCOURAGE PARTICIPATION. MONITOR FOR CHANGES IN MOOD R. PATIENT PARTICIPATED IN GROUP ACTIVITY TOOK MEDICATIONS ORDERED PER MD, PROVIDED EDUCATION ON MEDICATIONS, PROVIDED CONTINUED EDUCATION ON HIP PRECAUTIONS. SAFETY . PATIENT UTILIZED WALKER FOR AMBULATION, HIP BRACE IN PLACE, PILLOW WAS PLACED BETWEEN KNEES DURING SLEEP. P. CONTINUE CURRENT PLAN OF CARE.
--- NOTE | 2021-07-18 07:19 | NUR ---
FAMILY NOTIFIED PATIENT ASKED FOR SON TO BE NOTIFIED HE NEEDED HIS ELECTRIC BILL AND CAR INSURANCE PAID. THIS NURSE NOTIFIED. UNDERSTANDING VOICED. PATIENT AWARE CONTACT MADE.
--- NOTE | 2021-07-18 07:39 | NUR ---
LAB TAXI DRIVER AT BEDSIDE DRAWING LABS.
[2021-07-18 08:19] VITALS: BP 117/54
[2021-07-18] MEDS ORDERED: CeleXA PO SCH (09:00)
[2021-07-18] MEDS: NICOTINE 21MG PATCH TD SCH (09:12)
[2021-07-18] MEDS: LOVENOX SQ SCH ×2 (09:12→21:11)
--- NOTE | 2021-07-18 10:30 | NUR ---
PT PHYSICAL THERAPY WORKING WITH PT. OT HAS ALSO BEEN IN TO SEE PT.
--- NOTE | 2021-07-18 11:15 | NUR ---
TELEMED PT WAS SEEN BY JACKY PERALTA VIA TELEMED. SEE EMAR FOR NEW ORDERS.
--- NOTE | 2021-07-18 11:20 | PRM.PN ---
Assessment/Plan Assessment/Plan Assessment/Plan 07/18 The patient was seen today. He appears in a good mood, but states he has a "don't give a sh*t attitude." He says he has some underlying depression, but it's due to his living situation and finances. The patient denies SI/HI or hallucinations of any kind. He states he "did not sleep a wink last night." Will increase Trazodone 100mg po qhs, will increase Celexat 20mg po daily. The patient did not want any family called. He says he will inform his son of what's going on. Dr. Do in on the visit for treatment team. Date of Service: 07/17/21 Patient Name: Corbin Ervin Date of : 1955 Age:66 Y Sex:male Race: Marital Status: single Employment Status: disabled Location of Care: Patient Seen Via Telehealth Patient seen with Tawana Shau Nurse Practitioner Note created by BARREL AND RECEIVER ALIGNER and edited by me. Presenting Complaints: depression History of Presenting Complaints: This is a 66 Y male with no past psychiatric conditions. He was admitted into the hospital after he fell and fx his hip. He was found to have poor living conditions and suffered depression due to this. During my evaluation of this pateint he is calm, cooperative and polite. He denies any past psychiatric conditions, any past psych medications. He also denies SI/HI, and denies never having any past attempt now ever though of suicide. He denies hallucinations of any kind. He denies any illicit drug use, and states he uses alcohol occasionally. He denies nicotine use. The patient says he's depressed due to his living conditions and his limited financial resources. He rates his depression at a 4/10. He denies any anxiety. He says he sleeps well and his appetite is well. Assessment of Imminent Risk Presence of Homicidal thoughts: Denies Presence of Self-harm/Suicidal thoughts: Denies Presence of Hallucinations: Denies Presence of Delusions: Denies Recent Stressors Recent stressors include: Financial concern Other Stressors: living conditions Past Psychiatric History: Diagnoses: Denies Suicide attempts: Denies Psychiatric hospitalizations: Denies Psychiatric outpatient: Denies Psychotherapy/Counseling: Denies Substance Abuse: Denies Past psychiatric medications tried and response: Denies Family History Unknown Social History Tobacco: Never smoker Alcohol: Denies Usage Drug: Denies Usage Marital Status: Living Arrangements: alone Employment Status: disabled History of Abuse: No Access to guns/weapons: No Legal History: No Current Medications Patient currently takes no medication Allergies Allergy: NKDA Physical Exam General Development: Well-developed, Well-nourished, In no distress Neck Surface: Normal Respiratory Breathing: Breathing unlabored Neurological Orientation: X 3 Mental Status Exam: General Appearance and Behavior: age appropriate, good eye contact, cooperative with questioning and polite Cooperation: Cooperative Psychomotor Behavior: normal Mood: Depressed Affect and affective range: Congruent with stated mood Thought Process: Fluent/Logical and Goal-directed Thought Content: Within reality Speech: Normal volume and Regular rate and rhythm Intellectual Functioning: Average Suicidal Ideation: Denies SI Homicidal Ideation: Denies HI Impulse Control: intact Insight and Judgment: normal insight and judgment Memory: Normal Attention: Normal Orientation: alert and oriented Capacity to consent: Intact Strengths: family support from his sons and daughters, his puppy Weaknesses: Limited resources, living conditions Diagnoses Major depressive disorder Treatment Plan: Medication Management and Therapy Medication Management: Celexa 10mg po daily Reviewed expected course of therapy, potential medication side effects and need for close follow up. Counseled patient about risk of discontinuing medications without medical advice and need for gradual taper when stopping medications. Risks, benefits, alternatives and possible side effects discussed with patient. Consent obtained. ELOS 7 days Prognosis Good Current Medications Medications (Trade) Dose Ordered Sig/Bijal PRN Reason Start Time Stop Time Status Last Admin Acetaminophen/ Hydrocodone Bitart ([place] 5mg) 1 ea Q6HR PRN PAIN 07/16/21 21:50 08/15/21 00:00 07/16/21 23:06 Albuterol Sulfate (Ventolin Hfa) 2 inh Q4 PRN SHORTNESS OF BREATH 07/17/21 00:00 08/15/21 00:00 07/17/21 05:30 Enoxaparin Sodium (Lovenox) 30 mg Q12H 07/17/21 09:30 08/16/21 09:29 Levothyroxine Sodium (Synthroid) 150 mcg ACB 07/17/21 08:00 08/16/21 07:59 07/17/21 10:51 Tramadol HCl (Ultram) 50 mg Q4HR PRN PAIN 07/16/21 21:50 08/15/21 00:00 07/17/21 10:50 TAWANA SAHU NP Jul 18, 2021 11:20
--- NOTE | 2021-07-18 14:18 | NUR ---
PIRP P: ALTERATION IN MOOD, RISK FOR FALLS, IMPAIRED SKIN INTEGRITY, ALTERED NUTRITION I. PROVIDE Q 15 MINUTE CHECKS. PROVIDE SAFE AND SECURE ENVIRONMENT. PROVIDE 1:1 INTERVENTION TO ALLOW PATIENT TO EXPRESS FEELINGS. PROVIDE MEDICATIONS ORDERED PER PHYSICIAN. PROVIDE TASK ORIENTED GROUP ACTIVITY AND ENCOURAGE PARTICIPATION. MONITOR FOR CHANGES IN MOOD. MONITOR FOR CHANGES IN SKIN. MONITOR MEAL INTAKE. R. PATIENT PARTICIPATED IN GROUP ACTIVITY TOOK MEDICATIONS ORDERED PER MD. PROVIDED MEDICATION OF CELEXA AND LOVENOX AND WILL CONTINUE TO REEDUCATE. PROVIDED CONTINUED EDUCATION ON HIP PRECAUTIONS, SAFETY . PATIENT UTILIZED WALKER FOR AMBULATION, HIP BRACE IN PLACE. PT AND OT WORKED WITH PT THIS SHIFT. P. NEW ORDERS ON TRAZODONE AND CELEXA.
--- NOTE | 2021-07-18 18:17 | NUR ---
DR CASTILLO PATIENT STATES HIS LEFT UPPER SHOULDER/CHEST AREA IS IN PAIN. RATES PAIN 07/14. STATES "IT IS A MUSCULOSKELETAL PAIN." STATES THE PAIN STARTED YESTERDAY BUT HAS GOT WORSE. THE PATIENT STATES, "I NEED IT TO POP; AND I NEED SOME ICY HOT." THIS RN PATIENT IS TENDER TO PALPATION OF LEFT ANTERIOR CHEST. PATIENT DENIES DIFFICULTLY BREATHING AND PAIN WITH BREATHING. THIS RN CALLED DR CASTILLO AND NOTIFIED HIM OF ASSESSMENT AND PATIENT'S CONCERNS. NEW ORDERS RECEIVED FOR FLEXERIL 10MG Q8H AND TYLENOL 500MG Q6H PO STARTING NOW.
[2021-07-18] MEDS: FLEXERIL PO PRN (18:20)
--- NOTE | 2021-07-18 18:25 | NUR ---
NEW MEDICATIONS PATIENT GIVEN FLEXERIL 10MG AND TYLENOL 500MG PO. EDUCATED ON PURPOSE AND SIDE EFFECTS. PATIENT VERBALIZED UNDERSTANDING.
[2021-07-18] MEDS ORDERED: TYLENOL PO PRN (18:30)
--- NOTE | 2021-07-18 20:00 | NUR ---
DR BARRERA DIRECTOR ADVANCED ON UNIT CoronaFROM DR BARRERA OFFICE IN TO SEE PATIENT. NO NEW ORDERS. Addendum: 07/19/21 at 8811 by RODRI Santos RN per cristobal spicer she is workers' compensation claims supervisor this weekend and nursing may call her for any needs for left hip.
--- NOTE | 2021-07-18 20:24 | NUR ---
EKG NOTIFIED RESPIRATORY OF ROUTINE EKG ORDER.
[2021-07-18 20:34] VITALS: BP 148/64
--- NOTE | 2021-07-18 20:40 | NUR ---
LAB DRAW/ MUSCLE DISCOMFORT THIS NURSE ATTEMPTED X 2 FOR VENIPUNCTURE FOR TROPONIN UNSUCCESSFUL TO RIGHT ANTECUB AND LEFT HAND, BOTH WITH 22 GAUGE BUTTERFLY NEEDLE, ASEPTIC TECH USED. THEN PINKING SEWING MACHINE OPERATOR ATTEMPTED X 2, ONE TO LEFT ANTECUB UNSUCCESSFUL AND THEN SUCCESSFUL TO RIGHT ANTECUB. TROPONIN WAS DELIVERED TO LAB. PATIENT TOLERATED WITHOUT DISTRESS. PATIENT REPORTS AT THIS TIME DISCOMFORT TO LEFT UPPER CHEST AREA IS 1/10 AND THAT FLEXERIL HAS RELIEVED THE DISCOMFORT AND FEELS THE DISCOMFORT IS MUSCLE RELATED.
[2021-07-18] MEDS ORDERED: TRELEGY ELLIPTA 100-62.5-25 IH SCH (20:55)
--- NOTE | 2021-07-18 20:55 | NUR ---
Called Dr. Estrada Called Dr. Estrada. Requested pt trelegy from home medication list be continued per pt request. Dr Estrada continued trelegy.
[2021-07-18] MEDS ORDERED: DESYREL PO SCH (21:00)
--- NOTE | 2021-07-18 21:50 | NUR ---
BIOPSYCHOSOCIAL: PLEASE SEE PT'S CHART FOR FULL ASSESSMENT. Addendum: 07/18/21 at 2150 by Sharda Contreras LMSW SW Amended: Links added.
[2021-07-19] MEDS: SYNTHROID PO SCH (06:08)
--- NOTE | 2021-07-19 06:18 | NUR ---
P.I.R.P. P. ALTERATION IN MOOD, DTS, HIGH RISK FOR FALLS I. PROVIDE EVERY 15 MINUTE CHECKS, PROVIDE SAFE AND SECURE ENVIRONMENT, PROVIDE 1:1 INTERVENTION TO ALLOW PATIENT TO EXPRESS FEELINGS, PROVIDE MEDICATIONS ORDERED PER MD. PROVIDE TASK ORIENTED GROUP ACTIVITY AND ENCOURAGE PARTICIPATION. MONITOR FOR CHANGES IN MOOD, CONTINUE TO EDUCATE ON HIP PRECAUTIONS, AVOIDING BENDING AT THE WAIST, CROSSING LEGS, ANKLES OR FEET, AVOID ABDUCTION OR ADDUCTION OF HIPS, WEARING HIP BRACE PER MD/PHYSICAL THERAPY INSTRUCTION. MONITOR FOR CHEST PAIN OR DIFFICULTY BREATHING. R. PATIENT PARTICIPATED IN GROUP ACTIVITY, TOOK MEDICATIONS ORDERED PER MD, PROVIDED EDUCATION ON MEDICATIONS, PATIENT UTILIZED WALKER FOR AMBULATION, HIP BRACE IN PLACE, PILLOW WAS PLACED BETWEEN KNEES DURING SLEEP. PATIENT HAD IMPROVED SLEEP THIS SHIFT COMPARED TO PREVIOUS NIGHTS. PATIENT HAS DENIED CHEST PAIN, DID REPORT AT BEGINNING OF SHIFT DISCOMFORT WITH DEEP BREATHING FEELING THIS WAS MORE MUSCLE RELATED AND THAT THE FLEXERIL DECREASED DISCOMFORT TO 1/10, NO SHORTNESS OF BREATH. NO CHEST PAIN THIS SHIFT. P. CONTINUE CURRENT PLAN OF CARE. Addendum: 07/19/21 at 0723 by SAI SantosBHU LAMAR PATIENT VOICED THAT HE FEELS THE MEDS ARE HELPING HIS EMOTIONS.
[2021-07-19] MEDS: VENTOLIN HFA IH PRN ×2 (06:44→14:37)
--- NOTE | 2021-07-19 06:45 | NUR ---
PRN ALBUTEROL PT ADMINISTERED PRN ALBUTEROL 2INH
--- NOTE | 2021-07-19 08:18 | NUR ---
PT PATIENT AMBULATING BLANK ALONGSIDE PHYSICAL THERAPY. SLOW, STEADY GAIT WITH USE OF ROLLING WALKER. PHYSICAL THERAPY NOTIFIED OF NEED FOR CLARIFICATION ON USE OF BRACE DURING SHOWERS. LEATHER LEVELER REPORTS WILL REACH OUT TO DR. BOWEN FOR CLARIFICATION AND UPDATE ORDER.
[2021-07-19 08:29] VITALS: BP 126/56
[2021-07-19] MEDS: CeleXA PO SCH (09:37)
[2021-07-19] MEDS: NICOTINE 21MG PATCH TD SCH (09:37)
[2021-07-19] MEDS: LOVENOX SQ SCH ×2 (09:38→21:08)
[2021-07-19] MEDS: TRELEGY ELLIPTA 100-62.5-25 IH SCH (09:49)
--- NOTE | 2021-07-19 09:49 | NUR ---
TRELEGY UNABLE TO DOCUMENT IN EMAR. PT GIVEN 1 PUFF OF TRELEGY AT THIS TIME.
--- NOTE | 2021-07-19 10:36 | PCM.EKG ---
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
--- NOTE | 2021-07-19 11:36 | NUR ---
TELEMED PT SEEN BY HEATHER KELLER,RECEIVED NEW MEDICATION ORDERS TO DECREASE TRAZODONE. SEE EMR.
--- NOTE | 2021-07-19 12:05 | PRM.PN ---
Assessment/Plan Assessment/Plan Assessment/Plan 07/19: The patient was seen today. The patient continues presents with depressive with symptoms of hopelessness " I don't care about anything; I can't control anything why should I care. " The patient talked about his living situation stating he would be staying with his son post discharge. The patient was seen in bed; he states he is sleepy. The patient denies any current suicidal/homicidal ideation and denies hallucinations. Will decrease Trazodone to 50mg po QHS. The patient has marked exacerbation of symptoms associated with persistent depression. 07/18 The patient was seen today. He appears in a good mood, but states he has a "don't give a sh*t attitude." He says he has some underlying depression, but it's due to his living situation and finances. The patient denies SI/HI or hallucinations of any kind. He states he "did not sleep a wink last night." Will increase Trazodone 100mg po qhs, will increase Celexat 20mg po daily. The patient did not want any family called. He says he will inform his son of what's going on. Dr. Do in on the visit for treatment team. Date of Service: 07/17/21 Patient Name: Corbin Ervin Date of : 1955 Age:66 Y Sex:male Race: Marital Status: single Employment Status: disabled Location of Care: Patient Seen Via Telehealth Patient seen with Tawana Dean, Nurse Practitioner Note created by DAIRY WORKER and edited by me. Presenting Complaints: depression History of Presenting Complaints: This is a 66 Y male with no past psychiatric conditions. He was admitted into the hospital after he fell and fx his hip. He was found to have poor living conditions and suffered depression due to this. During my evaluation of this pateint he is calm, cooperative and polite. He denies any past psychiatric conditions, any past psych medications. He also denies SI/HI, and denies never having any past attempt now ever though of suicide. He denies hallucinations of any kind. He denies any illicit drug use, and states he uses alcohol occasionally. He denies nicotine use. The patient says he's depressed due to his living conditions and his limited financial resources. He rates his depression at a 4/10. He denies any anxiety. He says he sleeps well and his appetite is well. Assessment of Imminent Risk Presence of Homicidal thoughts: Denies Presence of Self-harm/Suicidal thoughts: Denies Presence of Hallucinations: Denies Presence of Delusions: Denies Recent Stressors Recent stressors include: Financial concern Other Stressors: living conditions Past Psychiatric History: Diagnoses: Denies Suicide attempts: Denies Psychiatric hospitalizations: Denies Psychiatric outpatient: Denies Psychotherapy/Counseling: Denies Substance Abuse: Denies Past psychiatric medications tried and response: Denies Family History Unknown Social History Tobacco: Never smoker Alcohol: Denies Usage Drug: Denies Usage Marital Status: Living Arrangements: alone Employment Status: disabled History of Abuse: No Access to guns/weapons: No Legal History: No Current Medications Patient currently takes no medication Allergies Allergy: NKDA Physical Exam General Development: Well-developed, Well-nourished, In no distress Neck Surface: Normal Respiratory Breathing: Breathing unlabored Neurological Orientation: X 3 Mental Status Exam: General Appearance and Behavior: age appropriate, good eye contact, cooperative with questioning and polite Cooperation: Cooperative Psychomotor Behavior: normal Mood: Depressed Affect and affective range: Congruent with stated mood Thought Process: Fluent/Logical and Goal-directed Thought Content: Within reality Speech: Normal volume and Regular rate and rhythm Intellectual Functioning: Average Suicidal Ideation: Denies SI Homicidal Ideation: Denies HI Impulse Control: intact Insight and Judgment: normal insight and judgment Memory: Normal Attention: Normal Orientation: alert and oriented Capacity to consent: Intact Strengths: family support from his sons and daughters, his puppy Weaknesses: Limited resources, living conditions Diagnoses Major depressive disorder Treatment Plan: Medication Management and Therapy Medication Management: Celexa 10mg po daily Reviewed expected course of therapy, potential medication side effects and need for close follow up. Counseled patient about risk of discontinuing medications without medical advice and need for gradual taper when stopping medications. Risks, benefits, alternatives and possible side effects discussed with patient. Consent obtained. ELOS 7 days Prognosis Good Current Medications Medications (Trade) Dose Ordered Sig/Bijal PRN Reason Start Time Stop Time Status Last Admin Acetaminophen/ Hydrocodone Bitart ([place] 5mg) 1 ea Q6HR PRN PAIN 07/16/21 21:50 08/15/21 00:00 07/16/21 23:06 Albuterol Sulfate (Ventolin Hfa) 2 inh Q4 PRN SHORTNESS OF BREATH 07/17/21 00:00 08/15/21 00:00 07/17/21 05:30 Enoxaparin Sodium (Lovenox) 30 mg Q12H 07/17/21 09:30 08/16/21 09:29 Levothyroxine Sodium (Synthroid) 150 mcg ACB 07/17/21 08:00 08/16/21 07:59 07/17/21 10:51 Tramadol HCl (Ultram) 50 mg Q4HR PRN PAIN 07/16/21 21:50 08/15/21 00:00 07/17/21 10:50 HEATHER KELLER DAIRY WORKER Jul 19, 2021 12:05
--- NOTE | 2021-07-19 16:03 | NUR ---
PIRP P: DTS, ALTERATION IN MOOD, RISK FOR FALLS I: Q15 MIN MONITORING, ASSESS REASONS FOR DEPRESSION/ANXIETY, PROVIDE 1:1 TO ENCOURAGE EXPRESSION OF FEELINGS, PROVIDE SAFE AND SUPPORTIVE ENVIRONMENT, PROVIDE TASK-ORIENTED ACTIVITIES, ALTERNATE REST/ACTIVITY, REINFORCE FALL PREVENTION TECHNIQUES, REINFORCE EDUCATION REGARDING PROPER LIMB ALIGNMENT, PROVIDE MEDICATION EDUCATION, GIVE MEDICATIONS ORDERED R: PATIENT HAS ISOLATED TO ROOM FOR MAJORITY OF SHIFT, HAS COME OUT TO DAY ROOM FOR MEALS. PATIENT IS PLEASANT WITH APPROACH. DENIES FEELINGS OF DEPRESSION AND ANXIETY THIS SHIFT, NO HALLUCINATIONS/DELUSIONS NOTED. DENIES SI/HI, BUT DOES CONTINUE TO REPORT ANHEDONIA AND LACK OF MOTIVATION. PATIENT REPORTS FEELING "TOO SLEEPY" AND DIFFICULTY STAYING AWAKE DURING DAY. PATIENT HAS BEEN COOPERATIVE WITH PHYSICAL THERAPY AND HAS TOILETED SELF. P: TRAZODONE DECREASED
[2021-07-19 19:44] VITALS: BP 144/83
[2021-07-19] MEDS ORDERED: DESYREL PO SCH (21:00)
[2021-07-20] MEDS: FLEXERIL PO PRN (00:21)
--- NOTE | 2021-07-20 00:25 | NUR ---
PRN FLEXERIL PT REQUESTED PRN FLEXERIL FOR MUSCLE SPASMS IN LOWER EXTREMITIES.
[2021-07-20] MEDS: VENTOLIN HFA IH PRN (02:32)
--- NOTE | 2021-07-20 02:32 | NUR ---
PRN ALBUTEROL PT REQUESTED PRN ALBUTEROL FOR SOB
--- NOTE | 2021-07-20 04:34 | NUR ---
P.I.R.P P- DTS, ALTERATION IN MOOD,RISK FOR FALLS I- Q 15 MINUTE CHECKS, ASSESS REASONS FOR DEPRESSIONS AND ANXIETY, MAINTAIN PROPER BODY ALIGNMENT DUE TO HIP SURGERY, ASSIST WITH ADL'S NEEDED, PROVIDE 1:1 TO ENCOURAGE EXPRESSION OF FEELINGS, PROVIDE A SAFE AND SUPPORTIVE ENVIRONMENT, ENCOURAGE TASK ORIENTED ACTIVITIES, REINFORCE FALL PREVENTION TECHNIQUES, PROVIDE MEDICATION EDUCATION, PROVIDE MEDICATIONS PRESCRIBED BY PHYSICIAN. R- PT HAS ISOLATED TO HIS ROOM FOR THIS SHIFT. PT DECLINED GROUP. PT DECLINED SNACKS STATING WE "FEED TOO MUCH". PT HAS A PLEASANT AFFECT BUT STATES "THOSE SLEEPING PILLS ARE TOO STRONG", PT TOOK MEDICATIONS PRESCRIBED, REQUESTED ALBUTEROL INHALER TWO TIMES THIS SHIFT.PT REQUESTED PRN FLEXERIL FOR MUSCLE SPASMS. PT HAS BEEN MINDFUL OF KEEPING LEFT LEG IN PROPER ALIGNMENT THIS SHIFT. PT HAS TOILETED SELF, REQUIRES HELP GETTING REPOSITIONED IN BED. PT DENIES DEPRESSION, DENIES ANXIETY, DENIES SI AT THIS TIME. P- CONTINUE TO PROVIDE A SAFE AND SUPPORTIVE ENVIRONMENT, CONTINUE TO PROVIDE MEDICATIONS ORDERED BY PHYSICIAN, CONTINUE TO PROVIDE 1:1 INTERVENTION TO ALLOW EXPRESSION OF FEELINGS, CONTINUE TO ENCOURAGE GROUP PARTICIPATION AND SOCIAL INTERACTION. CONTINUE TO TEACH FALL PREVENTION AND PROPER BODY ALIGNMENT.
[2021-07-20] MEDS: SYNTHROID PO SCH (05:52)
[2021-07-20] MEDS: TRELEGY ELLIPTA 100-62.5-25 IH SCH (05:53)
[2021-07-20 08:10] VITALS: BP 114/53
--- NOTE | 2021-07-20 08:45 | NUR ---
Medication Patient requests no more "sleeping pills" 2/2 he does not like that he is "drowsy" in the morning. Patient approached [facility] with request for a "shot" to "pep me up." WEBSITE PROJECT MANAGER, in turn, brought request to attention of this RN. Patient notified there is no such shot available, at this time.
[2021-07-20] MEDS: CeleXA PO SCH (09:13)
[2021-07-20] MEDS: NICOTINE 21MG PATCH TD SCH (09:13)
[2021-07-20] MEDS: LOVENOX SQ SCH (09:13)
[2021-07-20] MEDS ORDERED: CITA10TA8 PO (10:25)
--- NOTE | 2021-07-20 10:27 | PRM.DC ---
Subjective Subjective Date of Discharge: Jul 20, 2021 Time of Request to Discharge: 14:00 Subjective The patient was provided inpatient psychiatric treatment with safe and supportive environment, group/individual therapy, psychiatric medication, medication adjustment, adverse effect monitor, medical evaluation, medical treatment, social service assessment, social support meeting, placement assessment and psycho-education. The patients mood, cognition, behavior, motivation, compliance to treatment and appreciation on family/social support are improved and stabilized. At the time of discharge, the patient had no suicidal ideas, no homicidal ideas, no aggressive thoughts, no endangering behavior and no debilitating adverse effects. The patient agreed on the treatment plan, understood the risk, benefit, alternative treatment, potential consequence of no treatment, and gave informed consent. Exam Vital Signs Vital Signs Date Time Temp Pulse Resp B/P (MAP) Pulse Ox O2 Delivery O2 Flow Rate FiO2 07/20/21 08:10 98.0 70 20 114/53 (73) 92 07/19/21 19:44 Room Air VTE VTE Risk Total Score: 3 VTE Risk Score VTE Risk: Score 0-1 = Low Risk (Aggressive mobilization; early ambulation; no VTE prophylaxis required) Score 2: Moderate Risk (Intermittent/Pneumatic Compression Device OR Lovenox/Heparin/Coumadin) Score 3-4: High Risk (Intermittent/Pneumatic Compression Device AND Lovenox/Heparin/Coumadin) Score > or =5: Highest Risk (Intermittent/Pneumatic Compression Device AND Lovenox/Heparin/Coumadin) Antico:Hep/LMWH/Coum/Xarelto: Yes Mechanical device ordered: Yes Objective Vitals and I/O Vital Sign - Last 24 Hours 07/19/21 07/20/21 19:44 08:10 Temp 98.2 98.0 Pulse 78 70 Resp 16 20 B/P (MAP) 144/83 (103) 114/53 (73) Pulse Ox 98 92 O2 Delivery Room Air Intake and Output 07/20/21 06:00 Intake Total 2054 ml Balance 2054 ml General: Alert, Oriented X3, Cooperative HEENT: Atraumatic, PERRLA, EOMI Lungs: Clear to auscultation Heart: Regular rate, Normal S1 Abdomen: Normal bowel sounds, Soft Extremities: No clubbing, No cyanosis Neuro: Normal gait, Normal speech, Strength at 5/5 X4 ext Psych/Mental Status: Mental status NL, Mood NL All Results(Lab/Rad) Current Medications Medications (Trade) Dose Ordered Sig/Bijal Route PRN Reason Start Time Stop Time Status Last Admin Dose Admin Levothyroxine Sodium (Synthroid) 150 mcg ACB PO 07/17/21 08:00 08/16/21 07:59 07/20/21 05:52 Acetaminophen/ Hydrocodone Bitart ([place] 5mg) 1 ea Q6HR PRN PO PAIN 7 - 10 07/16/21 21:50 08/15/21 00:00 07/18/21 05:43 Tramadol HCl (Ultram) 50 mg Q4HR PRN PO PAIN 4 - 6 07/16/21 21:50 08/15/21 00:00 07/17/21 10:50 Albuterol Sulfate (Ventolin Hfa) 200 inh STK-MED ONCE IH 07/16/21 22:49 07/16/21 22:50 DC Albuterol Sulfate (Ventolin Hfa) 2 inh Q4 PRN IH SHORTNESS OF BREATH 07/17/21 08:30 08/16/21 08:29 Cancel Albuterol Sulfate (Ventolin Hfa) 2 inh Q4 PRN IH SHORTNESS OF BREATH 07/17/21 00:00 08/15/21 00:00 07/20/21 02:32 Enoxaparin Sodium (Lovenox) 30 mg Q12H SQ 07/17/21 09:30 08/16/21 09:29 07/20/21 09:13 Nicotine (Nicotine 21mg Patch) 1 each DAILY TD 07/18/21 09:00 08/17/21 08:59 07/20/21 09:13 Nicotine (Nicotine 21mg Patch) 1 each STK-MED ONCE TD 07/17/21 14:38 07/17/21 15:03 DC Nicotine (Nicotine 21mg Patch) 1 each OT ONCE TD 07/17/21 14:00 07/17/21 15:04 DC Citalopram Hydrobromide (CeleXA) 10 mg DAILY PO 07/18/21 09:00 07/18/21 11:17 DC 07/18/21 09:12 Trazodone HCl (Desyrel) 50 mg HS PO 07/17/21 21:00 07/18/21 11:17 DC 07/17/21 21:53 Citalopram Hydrobromide (CeleXA) 20 mg DAILY PO 07/19/21 09:00 08/18/21 08:59 07/20/21 09:13 Trazodone HCl (Desyrel) 100 mg HS PO 07/18/21 21:00 07/19/21 11:52 DC 07/18/21 21:10 Cyclobenzaprine HCl (Flexeril) 10 mg Q8 PRN PO MUSCLE SPASM 07/18/21 18:30 08/17/21 18:29 07/20/21 00:21 Acetaminophen (Tylenol) 500 mg Q6H PRN PO PAIN 1 - 3 07/18/21 18:30 08/17/21 18:29 07/18/21 18:21 Trazodone HCl (Desyrel) 50 mg HS PO 07/19/21 21:00 08/18/21 20:59 07/19/21 21:08 Medication Reconciliation Scheduled Citalopram Hydrobromide (Celexa), 20 MG PO DAILY Fluticasone/Umeclidin/Vilanter (Trelegy Ellipta 100-62.5-25), 1 PUFF HHN DAILY24, (Reported) Levothyroxine Sodium (Levothyroxine Sodium), 1 TAB PO DAILY, (Reported) Scheduled PRN Albuterol Sulfate (Proair Respiclick), 90 MCG IH Q4 PRN for SHORTNESS OF BREATH, (Reported) Discontinued Medications Budesonide (Budesonide), 1 MG IH BID Discontinued Reason: Discontinue Doxycycline Hyclate (Doxycycline Hyclate), 100 MG PO BID Discontinued Reason: No Longer Taking Ipratropium/Albuterol Sulfate (Iprat-Albut 0.5-3(2.5) Mg/3 Ml), 3 ML IH QID Discontinued Reason: Discontinue Plan Plan My Orders - HEATHER KELLER NP Procedure Category Date Status Time Trazodone Hcl PHA 07/19/21 In Process (Desyrel) 21:00 HEATHER KELLER COUNTER SALES REPRESENTATIVE Jul 20, 2021 10:27
--- NOTE | 2021-07-20 11:22 | NUR ---
TELEPSYCH PATIENT SEEN BY PSYCHIATRIC PROVIDER VIA IPAD ZOOM. PATIENT TO DISCHARGE TODAY, HOME WITH HIS SON.
[2021-07-20] MEDS ORDERED: IPRA4AER IH (11:44)
--- NOTE | 2021-07-20 15:25 | NUR ---
OFF UNIT PT OFF UNIT IN WHEELCHAIR WITH OFFICE BOOKKEEPER AND SECURITY ALONG SIDE. NO ACUTE DISTRESS NOTED. PT LEFT WITH ALL BELONGINGS.
--- NOTE | 2021-07-20 16:05 | NUR ---
DISCHARGE PATIENT DISCHARGED HOME AFTER RECEIVING DISCHARGE TEACHING. PACKET PROVIDED. PATIENT'S SON AND DAUGHTER IN LAW IN ATTENDANCE. DISCHARGED HOME WITH HIS SON TO HIS SONS HOME. CHOICE OF [facility] FOR HOME HEALTH/PT/PSYCH NEEDS. PATIENT CLINICALS FAXED TO [facility]. PRESCRIPTIONS CALLED TO [facility]. TO THE EXIT ACCOMPANIED BY POLITICAL SCIENCE FACULTY MEMBER AND FAMILY, IN A TRANSPORT CHAIR, TAKING ALL HIS BELONGINGS. PATIENT'S DAUGHTER IN LAW JEAN CLAUDE, WORKS FOR [employer], WILL BRING [facility]ALK[facility], ON LOAN TO PATIENT, BACK ONCE THEY RECEIVE THE EQUIPMENT THEY NEED FROM [facility]. REQUEST FAXED TO [facility] FOR A WALKER FOR PATIENT.
[2021-07-20 16:33] VITALS: BP 114/53
== END 2021-07-20 15:25 | disposition home or self-care (01) | DRG 885 ==
LOC: EEVIPCON 19:30 → GP 19:30
PROVIDERS: ADMIT Psychiatry & Neurology Psychiatry; ATTEND Psychiatry & Neurology Psychiatry
DX: F33.2 Major depressive disorder, recurrent severe without psychotic features (principal); S73.005A Unspecified dislocation of left hip, initial encounter; W19.XXXA Unspecified fall, initial encounter; Y99.8 Other external cause status; Y93.89 Activity, other specified; Y92.89 Other specified places as the place of occurrence of the external cause; J44.9 Chronic obstructive pulmonary disease, unspecified; Z72.0 Tobacco use; Z71.6 Tobacco abuse counseling
CPT/HCPCS: 36415; 80061; 83036; 84484; 86592; 93005; 97150; 97162; 97166; 97530; G0378; J1650; J7611; 97110-GP; 97116-GP; 97535-GO